=== PATIENT | female | born 1995 | race African-American/Black ===

== ENCOUNTER 2017-05-25 18:53 | Observation (INO) | payer SELFPAY ==
[2017-05-25 19:41] LABS: BILIRUBIN,URINE SMALL (NEG); CLARITY,URINE CLOUDY; GLUCOSE,URINE NEGATIVE (NEG); NITRITE,URINE NEGATIVE (NEG); PH,URINE 6.5; PROTEIN,URINE NEGATIVE (NEG-TRACE)
[2017-05-25 19:48] LABS: BARBITURATES NEG (NEG); BENZODIAZEPINES NEG (NEG); CANNABINOIDS POS (NEG); COCAINE NEG (NEG); METHADONE NEG (NEG); OPIATES NEG (NEG); PHENCYCLIDINE NEG (NEG)
[2017-05-25 19:49] LABS: AMPHETAMINE/METHAMPHETAMINE NEG (NEG); COLOR,URINE DK YELLOW; ETHANOL, URINE NEG (NEG)
[2017-05-25 19:55] LABS: BACTERIA,URINE MODERATE /HPF (0-FEW); RBC,URINE 0 /HPF (0-2); SQUAMOUS EPITHELIAL CELL,UR MANY /LPF
[2017-05-25] MEDS: MAG HYDROX/ALUMINUM HYD/SIMETH 30 ML ORAL.SUSP PO ×2 (20:03)
[2017-05-25] MEDS: ONDANSETRON PF 4 MG/2 ML VIAL. IV ×2 (20:04)
[2017-05-25] MEDS: ACETAMINOPHEN 325 MG TABLET. PO ×2 (20:04)
[2017-05-25] MEDS: IV RINGERS,LACTATED 1000ML 1,000 ML IV ×2 (20:05)
== END 2017-05-25 21:19 | disposition home or self-care (01) ==
LOC: 3 SO LND 18:53
DX: O26.893 Other specified pregnancy related conditions, third trimester (principal); O99.89 Other specified diseases and conditions complicating pregnancy, childbirth and the puerperium; R07.9 Chest pain, unspecified; M54.9 Dorsalgia, unspecified; Z3A.33 33 weeks gestation of pregnancy
CPT/HCPCS: 80307; 81001; 87086; 96361; 96374; G0378; G0379; J2405; J7120

== ENCOUNTER 2017-06-08 22:17 | Inpatient (IN) | payer OTHER ==
[2017-06-08] MEDS ORDERED: 0.9 % SODIUM CHLORIDE 10 ML DISP.SYRIN. IV (23:15)
[2017-06-08 23:55] LABS: BILIRUBIN,URINE SMALL (NEG); CLARITY,URINE TURBID; COLOR,URINE ORANGE; GLUCOSE,URINE NEGATIVE (NEG); NITRITE,URINE NEGATIVE (NEG); PROTEIN,URINE 30 mg/dL (NEG-TRACE)
[2017-06-09 00:02] LABS: BARBITURATES NEG (NEG); BENZODIAZEPINES NEG (NEG); CANNABINOIDS POS (NEG); COCAINE NEG (NEG); METHADONE NEG (NEG); OPIATES NEG (NEG); PHENCYCLIDINE NEG (NEG)
[2017-06-09 00:05] LABS: BACTERIA,URINE MANY /HPF (0-FEW); RBC,URINE 0 /HPF (0-2); SQUAMOUS EPITHELIAL CELL,UR MANY /LPF
[2017-06-09 00:09] LABS: AMPHETAMINE/METHAMPHETAMINE NEG (NEG); ETHANOL, URINE NEG (NEG)
[2017-06-09 00:11] LABS: ADD MAN DIFF? NO
[2017-06-09 00:14] LABS: BASO % 0 % (0-3); EOS % 0 % (0-3); HEMATOCRIT 34.8 % (36.0-47.0); HEMOGLOBIN 11.6 g/dL (12.0-15.5); LYMPH # 1.4 x10^3/uL (1.0-4.8); LYMPH % 11 % (24-48); MEAN CORPUSCULAR HEMOGLOBIN 27 pg (25-35); MEAN CORPUSCULAR HGB CONC 33 g/dL (31-37); MEAN CORPUSCULAR VOLUME 82 fL (79-100); MONO # 0.9 x10^3/uL (0.0-1.1); MONO % 7 % (0-9); NEUT # 10.2 x10^3uL (1.8-7.7); NEUT % 81 % (31-73); PLATELET COUNT 306 x10^3/uL (140-400); RED BLOOD COUNT 4.27 x10^6/uL (3.50-5.40); RED CELL DISTRIBUTION WIDTH 13.5 % (11.5-14.5); WHITE BLOOD COUNT 12.6 x10^3/uL (4.0-11.0)
[2017-06-09] MEDS: IV DEXTROSE 5%-LACT RINGERS 1,000 ML IV ×6 (00:24→20:24)
[2017-06-09 00:27] LABS: ALBUMIN 2.6 g/dL (3.4-5.0); ALBUMIN/GLOBULIN RATIO 0.6 (1.0-1.7); ALK PHOS 216 U/L (46-116); ALT (SGPT) 78 U/L (14-59); AMYLASE 88 U/L (25-115); ANION GAP 12 (6-14); AST (SGOT) 93 U/L (15-37); BLOOD UREA NITROGEN 7 mg/dL (7-20); BUN/CREATININE RATIO 9 (6-20); CALCIUM 8.6 mg/dL (8.5-10.1); CARBON DIOXIDE 23 mmol/L (21-32); CHLORIDE 103 mmol/L (98-107); CREATININE 0.8 mg/dL (0.6-1.0); GFR 107.6; GLUCOSE 93 mg/dL (70-99); LIPASE 75 U/L (73-393); POTASSIUM 3.8 mmol/L (3.5-5.1); SODIUM 138 mmol/L (136-145); TOTAL BILIRUBIN 0.8 mg/dL (0.2-1.0); TOTAL PROTEIN 7.3 g/dL (6.4-8.2)
[2017-06-09] MEDS: KETOROLAC 30 MG/ML INJ. IV ×2 (00:46→10:29)
[2017-06-09] MEDS: ONDANSETRON PF 4 MG/2 ML VIAL. IV (04:00)
[2017-06-09] MEDS: oxyCODONE/APAP 5/325 1 TAB TABLET PO ×2 (13:39→19:41)
[2017-06-09] MEDS ORDERED: oxyCODONE/APAP 5/325 1 TAB TABLET PO ×2 (13:45)
[2017-06-10] MEDS: IV DEXTROSE 5%-LACT RINGERS 1,000 ML IV ×3 (00:22→08:19)
[2017-06-10] MEDS: oxyCODONE/APAP 5/325 1 TAB TABLET PO ×3 (04:20→17:51)
[2017-06-10 05:49] LABS: ADD MAN DIFF? NO
[2017-06-10 05:54] LABS: BASO % 0 % (0-3); EOS # 0.1 x10^3/uL (0.0-0.7); EOS % 1 % (0-3); HEMOGLOBIN 9.5 g/dL (12.0-15.5); LYMPH % 27 % (24-48); MEAN CORPUSCULAR HEMOGLOBIN 28 pg (25-35); MEAN CORPUSCULAR HGB CONC 34 g/dL (31-37); MEAN CORPUSCULAR VOLUME 82 fL (79-100); MONO # 0.6 x10^3/uL (0.0-1.1); MONO % 8 % (0-9); NEUT # 4.7 x10^3uL (1.8-7.7); NEUT % 64 % (31-73); PLATELET COUNT 252 x10^3/uL (140-400); RED BLOOD COUNT 3.42 x10^6/uL (3.50-5.40); RED CELL DISTRIBUTION WIDTH 13.6 % (11.5-14.5); WHITE BLOOD COUNT 7.4 x10^3/uL (4.0-11.0)
[2017-06-10 06:12] LABS: ALBUMIN/GLOBULIN RATIO 0.5 (1.0-1.7); ALK PHOS 169 U/L (46-116); ALT (SGPT) 55 U/L (14-59); ANION GAP 6 (6-14); AST (SGOT) 50 U/L (15-37); BLOOD UREA NITROGEN 4 mg/dL (7-20); BUN/CREATININE RATIO 6 (6-20); CALCIUM 7.8 mg/dL (8.5-10.1); CARBON DIOXIDE 25 mmol/L (21-32); CHLORIDE 107 mmol/L (98-107); CREATININE 0.7 mg/dL (0.6-1.0); GFR 125.5; GLUCOSE 104 mg/dL (70-99); POTASSIUM 3.6 mmol/L (3.5-5.1); SODIUM 138 mmol/L (136-145); TOTAL BILIRUBIN 0.3 mg/dL (0.2-1.0); TOTAL PROTEIN 5.7 g/dL (6.4-8.2)
== END 2017-06-10 18:23 | disposition home or self-care (01) | DRG 781 ==
LOC: 3 SO LND 22:17 → 3 NORTH 06-09 00:15
DX: O99.613 Diseases of the digestive system complicating pregnancy, third trimester (principal); K80.12 Calculus of gallbladder with acute and chronic cholecystitis without obstruction; D50.0 Iron deficiency anemia secondary to blood loss (chronic); Z3A.35 35 weeks gestation of pregnancy; O99.013 Anemia complicating pregnancy, third trimester
CPT/HCPCS: 36415; 76705; 80053; 80307; 81001; 82150; 83690; 84443; 85025; 87086; G0378; G0379; J1885; J2405

== ENCOUNTER 2017-06-11 23:51 | Inpatient (IN) | payer OTHER ==
[2017-06-12 00:30] LABS: BILIRUBIN,URINE SMALL (NEG); CLARITY,URINE CLOUDY; COLOR,URINE AMBER; GLUCOSE,URINE NEGATIVE (NEG); NITRITE,URINE NEGATIVE (NEG); PROTEIN,URINE NEGATIVE (NEG-TRACE); UROBILINOGEN,URINE >=8.0 mg/dL (0.2 mg/dL)
[2017-06-12 00:35] LABS: BARBITURATES NEG (NEG); BENZODIAZEPINES NEG (NEG); CANNABINOIDS POS (NEG); COCAINE NEG (NEG); METHADONE NEG (NEG); OPIATES NEG (NEG); PHENCYCLIDINE NEG (NEG)
[2017-06-12 00:37] LABS: AMPHETAMINE/METHAMPHETAMINE NEG (NEG); ETHANOL, URINE NEG (NEG)
[2017-06-12 00:40] LABS: BACTERIA,URINE MANY /HPF (0-FEW); RBC,URINE 0 /HPF (0-2); SQUAMOUS EPITHELIAL CELL,UR MANY /LPF
[2017-06-12] MEDS ORDERED: fentaNYL PF VIAL 100 MCG/2 ML VIAL (00:51)
[2017-06-12] MEDS: IV RINGERS,LACTATED 1000ML 1,000 ML IV ×5 (00:59→23:18)
[2017-06-12] MEDS: fentaNYL PF VIAL 100 MCG/2 ML VIAL IV (00:59)
[2017-06-12] MEDS ORDERED: oxyCODONE/APAP 5/325 1 TAB TABLET PO (01:00)
[2017-06-12 01:13] LABS: ADD MAN DIFF? NO
[2017-06-12 01:15] LABS: BASO % 0 % (0-3); EOS % 0 % (0-3); HEMATOCRIT 30.7 % (36.0-47.0); HEMOGLOBIN 10.4 g/dL (12.0-15.5); LYMPH # 1.3 x10^3/uL (1.0-4.8); LYMPH % 13 % (24-48); MEAN CORPUSCULAR HEMOGLOBIN 28 pg (25-35); MEAN CORPUSCULAR HGB CONC 34 g/dL (31-37); MEAN CORPUSCULAR VOLUME 82 fL (79-100); MONO # 0.8 x10^3/uL (0.0-1.1); MONO % 8 % (0-9); NEUT # 7.9 x10^3uL (1.8-7.7); NEUT % 79 % (31-73); PLATELET COUNT 281 x10^3/uL (140-400); RED BLOOD COUNT 3.75 x10^6/uL (3.50-5.40); RED CELL DISTRIBUTION WIDTH 13.2 % (11.5-14.5); WHITE BLOOD COUNT 10.1 x10^3/uL (4.0-11.0)
[2017-06-12 01:28] LABS: ALBUMIN 2.3 g/dL (3.4-5.0); ALBUMIN/GLOBULIN RATIO 0.6 (1.0-1.7); ALK PHOS 213 U/L (46-116); ALT (SGPT) 60 U/L (14-59); AMYLASE 102 U/L (25-115); ANION GAP 7 (6-14); AST (SGOT) 81 U/L (15-37); BLOOD UREA NITROGEN 5 mg/dL (7-20); BUN/CREATININE RATIO 10 (6-20); CALCIUM 8.3 mg/dL (8.5-10.1); CARBON DIOXIDE 25 mmol/L (21-32); CHLORIDE 105 mmol/L (98-107); CREATININE 0.5 mg/dL (0.6-1.0); GLUCOSE 95 mg/dL (70-99); LIPASE 78 U/L (73-393); POTASSIUM 4.1 mmol/L (3.5-5.1); SODIUM 137 mmol/L (136-145); TOTAL BILIRUBIN 0.8 mg/dL (0.2-1.0); TOTAL PROTEIN 6.2 g/dL (6.4-8.2)
[2017-06-12] MEDS: oxyCODONE/APAP 5/325 1 TAB TABLET PO ×2 (15:51→22:00)
[2017-06-13] MEDS: IV RINGERS,LACTATED 1000ML 1,000 ML IV (07:08)
[2017-06-13] MEDS: oxyCODONE/APAP 5/325 1 TAB TABLET PO (12:07)
[2017-06-13] MEDS ORDERED: FAMOTIDINE 20 MG TABLET. PO (21:00)
== END 2017-06-13 15:20 | disposition home or self-care (01) | DRG 781 ==
LOC: 3 SO LND 23:51
DX: O99.613 Diseases of the digestive system complicating pregnancy, third trimester (principal); K80.20 Calculus of gallbladder without cholecystitis without obstruction; Z3A.36 36 weeks gestation of pregnancy
CPT/HCPCS: 36415; 59025; 80053; 80307; 81001; 82150; 83690; 85025; 87086; G0379; J3010; J7120

== ENCOUNTER 2017-06-22 12:00 | Inpatient (IN) | payer OTHER ==
[2017-06-22] MEDS ORDERED: fentaNYL PF VIAL 100 MCG/2 ML VIAL IV (13:15)
[2017-06-22] MEDS ORDERED: OXYTOCIN 30 UNIT/500 ML PREMIX 500 ML IV (13:15)
[2017-06-22] MEDS ORDERED: LIDOCAINE 1% PF 30 ML VIAL. INJ ×2 (13:15→22:45)
[2017-06-22] MEDS: IV RINGERS,LACTATED 1000ML 1,000 ML IV ×2 (13:56→21:26)
[2017-06-22 14:06] LABS: ADD MAN DIFF? NO
[2017-06-22 14:09] LABS: BASO % 0 % (0-3); EOS % 0 % (0-3); HEMOGLOBIN 11.4 g/dL (12.0-15.5); LYMPH % 18 % (24-48); MEAN CORPUSCULAR HEMOGLOBIN 27 pg (25-35); MEAN CORPUSCULAR HGB CONC 33 g/dL (31-37); MEAN CORPUSCULAR VOLUME 83 fL (79-100); MONO # 0.7 x10^3/uL (0.0-1.1); MONO % 6 % (0-9); NEUT # 8.3 x10^3uL (1.8-7.7); NEUT % 76 % (31-73); PLATELET COUNT 261 x10^3/uL (140-400); RED BLOOD COUNT 4.21 x10^6/uL (3.50-5.40); WHITE BLOOD COUNT 10.9 x10^3/uL (4.0-11.0)
[2017-06-22] MEDS ORDERED: AMPICILLIN SODIUM 2 GM in IV NORMAL SALINE 100ML 100 ML IV (14:15)
[2017-06-22] MEDS ORDERED: AMPICILLIN SODIUM 1 GM in IV NORMAL SALINE 50ML 50 ML IV (14:15)
[2017-06-22] MEDS: DINOPROSTONE 10 MG SUPP.VAG VG (17:26)
[2017-06-22] MEDS ORDERED: BUTORPHANOL 2 MG/ML VIAL. IV (22:45)
[2017-06-22] MEDS ORDERED: TERBUTALINE 1 MG/ML VIAL. SQ (22:45)
[2017-06-22] MEDS: ONDANSETRON PF 4 MG/2 ML VIAL. IV (22:52)
[2017-06-22] MEDS: BUTORPHANOL 2 MG/ML VIAL. IV (22:52)
[2017-06-23] MEDS: BUTORPHANOL 2 MG/ML VIAL. IV ×3 (01:15→16:51)
[2017-06-23] MEDS: IV RINGERS,LACTATED 1000ML 1,000 ML IV ×3 (05:07→21:14)
[2017-06-23] MEDS: DINOPROSTONE 10 MG SUPP.VAG VG (09:56)
[2017-06-23] MEDS: AMPICILLIN SODIUM IV Push 2 GM VIAL. IVP (16:52)
[2017-06-23] MEDS ORDERED: BUPIVACAINE MPF 0.25% 30 ML VIAL. (18:12)
[2017-06-23] MEDS ORDERED: L&D EPIDURAL SYRINGE 50 ML EP (18:12)
[2017-06-23] MEDS: OXYTOCIN 30 UNIT/500 ML PREMIX 500 ML IV (18:51)
[2017-06-23] MEDS ORDERED: IV RINGERS,LACTATED 1000ML 1,000 ML IV (18:55)
[2017-06-23] MEDS ORDERED: BUPIVACAINE MPF 0.25% 10 ML VIAL. EPI (19:00)
[2017-06-23] MEDS ORDERED: fentaNYL PF VIAL 100 MCG/2 ML VIAL EPI (19:00)
[2017-06-23] MEDS ORDERED: ROPIVacaine 0.2% IN 0.9%NACL PF 40 MG/20 ML DISP.SYRIN. EPI (19:00)
[2017-06-23] MEDS ORDERED: diphenhydrAMINE 50 MG/ML VIAL IV (19:00)
[2017-06-23] MEDS ORDERED: IV RINGERS,LACTATED 500ML 500 ML IV (19:00)
[2017-06-23] MEDS ORDERED: NALOXONE 0.4 MG/ML VIAL. IV (19:00)
[2017-06-23] MEDS ORDERED: ONDANSETRON PF 4 MG/2 ML VIAL. IV (19:00)
[2017-06-23] MEDS ORDERED: PROCHLORPERAZINE 10 MG/2 ML VIAL. IV (19:00)
[2017-06-23] MEDS ORDERED: NALBUPHINE 10 MG/ML AMPUL. IV (19:00)
[2017-06-23] MEDS ORDERED: PHENYLEPHRINE in 0.9% NACL PF 1 MG/10 ML SYRINGE. IV (19:00)
[2017-06-23] MEDS ORDERED: ePHEDrine PF IN SALINE 50 MG/5 ML DISP.SYRIN IV (19:00)
[2017-06-23] MEDS: L&D EPIDURAL SYRINGE 50 ML EP ×2 (19:10→22:08)
[2017-06-23] MEDS: AMPICILLIN SODIUM IV Push 1 GM VIAL. IVP (20:45)
[2017-06-24] MEDS: IV RINGERS,LACTATED 1000ML 1,000 ML IV (00:50)
[2017-06-24] MEDS: AMPICILLIN SODIUM IV Push 1 GM VIAL. IVP (01:13)
[2017-06-24] MEDS: L&D EPIDURAL SYRINGE 50 ML EP ×2 (02:35→05:45)
[2017-06-24] MEDS ORDERED: L&D EPIDURAL CASSETTE 100 ML EP (05:30)
[2017-06-24] MEDS ORDERED: METHYLERGONOVINE MALEATE 0.2 MG/ML VIAL. IM (07:30)
[2017-06-24] MEDS ORDERED: miSOPROStol 200MCG TAB 200 MCG TABLET PR (07:30)
[2017-06-24 07:35] LABS: RPR Non Reactive (Non Reactive)
[2017-06-24] MEDS ORDERED: ZOLPIDEM 5 MG TABLET. PO (09:45)
[2017-06-24] MEDS ORDERED: SIMETHICONE 80 MG TAB.CHEW PO (09:45)
[2017-06-24] MEDS ORDERED: MAG HYDROX/ALUMINUM HYD/SIMETH 30 ML ORAL.SUSP PO (09:45)
[2017-06-24] MEDS ORDERED: PHENYLEPH/MINERAL OIL/PETROLAT RECTAL OINTMENT 28GM TUBE. RC (09:45)
[2017-06-24] MEDS ORDERED: IBUPROFEN 800 MG TABLET. PO (09:45)
[2017-06-24] MEDS ORDERED: HYDROCORTISONE 1% TOPICAL OINTMENT 30GM TUBE. TP (09:45)
[2017-06-24] MEDS ORDERED: ACETAMINOPHEN 325 MG TABLET. PO (09:45)
[2017-06-24] MEDS ORDERED: MMR per PROTOCOL. MC (09:45)
[2017-06-24] MEDS ORDERED: BENZOCAINE 20% TOPICAL AEROSOL SPRAY 57GM CAN. TP (09:45)
[2017-06-24] MEDS ORDERED: OXYTOCIN 30 UNIT/500 ML PREMIX 500 ML IV (09:45)
[2017-06-24] MEDS ORDERED: 0.9 % SODIUM CHLORIDE 10 ML DISP.SYRIN. IV (09:45)
[2017-06-24] MEDS ORDERED: MAGNESIUM HYDROXIDE 2,400 MG/30 ML ORAL.SUSP. PO (09:45)
[2017-06-24] MEDS ORDERED: diphenhydrAMINE HCL 25 MG CAPSULE PO (09:45)
[2017-06-24] MEDS: IBUPROFEN 800 MG TABLET. PO ×2 (09:56→17:51)
[2017-06-24] MEDS ORDERED: L&D EPIDURAL SYRINGE 50 ML EP (10:00)
[2017-06-24] MEDS: HYDROcodone/APAP 5/325MG 1 TAB TABLET PO ×2 (14:42→22:58)
[2017-06-24] MEDS ORDERED: IV RINGERS,LACTATED 1000ML 1,000 ML IV (20:39)
[2017-06-24] MEDS: DOCUSATE SODIUM 100 MG CAPSULE. PO (22:58)
[2017-06-25] MEDS: HYDROcodone/APAP 5/325MG 1 TAB TABLET PO ×3 (03:29→21:32)
[2017-06-25 04:23] LABS: BASO % 0 % (0-3); EOS # 0.1 x10^3/uL (0.0-0.7); EOS % 1 % (0-3); HEMATOCRIT 29.1 % (36.0-47.0); HEMOGLOBIN 9.6 g/dL (12.0-15.5); LYMPH # 2.5 x10^3/uL (1.0-4.8); LYMPH % 11 % (24-48); MEAN CORPUSCULAR HEMOGLOBIN 28 pg (25-35); MEAN CORPUSCULAR HGB CONC 33 g/dL (31-37); MEAN CORPUSCULAR VOLUME 84 fL (79-100); MONO # 1.5 x10^3/uL (0.0-1.1); MONO % 7 % (0-9); NEUT # 18.1 x10^3uL (1.8-7.7); NEUT % 81 % (31-73); PLATELET COUNT 251 x10^3/uL (140-400); RED BLOOD COUNT 3.47 x10^6/uL (3.50-5.40); RED CELL DISTRIBUTION WIDTH 15.5 % (11.5-14.5); WHITE BLOOD COUNT 22.2 x10^3/uL (4.0-11.0)
[2017-06-25 04:30] LABS: ADD MAN DIFF? YES
[2017-06-25 04:45] LABS: ALBUMIN/GLOBULIN RATIO 0.5 (1.0-1.7); ALK PHOS 149 U/L (46-116); ALT (SGPT) 14 U/L (14-59); ANION GAP 7 (6-14); AST (SGOT) 19 U/L (15-37); BLOOD UREA NITROGEN 8 mg/dL (7-20); BUN/CREATININE RATIO 9 (6-20); CALCIUM 8.4 mg/dL (8.5-10.1); CARBON DIOXIDE 25 mmol/L (21-32); CHLORIDE 108 mmol/L (98-107); CREATININE 0.9 mg/dL (0.6-1.0); GFR 93.9; GLUCOSE 91 mg/dL (70-99); POTASSIUM 3.9 mmol/L (3.5-5.1); SODIUM 140 mmol/L (136-145); TOTAL BILIRUBIN 0.4 mg/dL (0.2-1.0); TOTAL PROTEIN 5.8 g/dL (6.4-8.2)
[2017-06-25 07:17] LABS: % LYMPHS 13 % (24-48); % MONOS 6 % (0-10); % SEGS 81 % (35-66); ANISOCYTOSIS SLIGHT; PLT ESTIMATE ADEQUATE (ADEQUATE)
[2017-06-25] MEDS: DOCUSATE SODIUM 100 MG CAPSULE. PO ×2 (07:51→21:31)
[2017-06-25] MEDS: IBUPROFEN 800 MG TABLET. PO ×2 (07:52→17:10)
[2017-06-25] MEDS: FERROUS SULFATE 325 MG TABLET. PO ×2 (07:52→17:10)
[2017-06-26] MEDS: HYDROcodone/APAP 5/325MG 1 TAB TABLET PO (02:01)
[2017-06-26] MEDS: IBUPROFEN 800 MG TABLET. PO ×2 (02:02→15:04)
[2017-06-26 04:42] LABS: ADD MAN DIFF? NO
[2017-06-26 04:49] LABS: BASO % 0 % (0-3); EOS # 0.1 x10^3/uL (0.0-0.7); EOS % 1 % (0-3); HEMATOCRIT 28.5 % (36.0-47.0); HEMOGLOBIN 9.4 g/dL (12.0-15.5); LYMPH # 3.2 x10^3/uL (1.0-4.8); LYMPH % 29 % (24-48); MEAN CORPUSCULAR HEMOGLOBIN 28 pg (25-35); MEAN CORPUSCULAR HGB CONC 33 g/dL (31-37); MEAN CORPUSCULAR VOLUME 83 fL (79-100); MONO # 0.8 x10^3/uL (0.0-1.1); MONO % 7 % (0-9); NEUT # 7.1 x10^3uL (1.8-7.7); NEUT % 63 % (31-73); PLATELET COUNT 236 x10^3/uL (140-400); RED BLOOD COUNT 3.42 x10^6/uL (3.50-5.40); RED CELL DISTRIBUTION WIDTH 15.9 % (11.5-14.5); WHITE BLOOD COUNT 11.3 x10^3/uL (4.0-11.0)
[2017-06-26 05:25] LABS: ALBUMIN 1.8 g/dL (3.4-5.0); ALBUMIN/GLOBULIN RATIO 0.6 (1.0-1.7); ALK PHOS 115 U/L (46-116); ALT (SGPT) 13 U/L (14-59); ANION GAP 5 (6-14); AST (SGOT) 15 U/L (15-37); BLOOD UREA NITROGEN 7 mg/dL (7-20); BUN/CREATININE RATIO 9 (6-20); CALCIUM 8.1 mg/dL (8.5-10.1); CARBON DIOXIDE 26 mmol/L (21-32); CHLORIDE 109 mmol/L (98-107); CREATININE 0.8 mg/dL (0.6-1.0); GFR 107.6; GLUCOSE 79 mg/dL (70-99); POTASSIUM 4.1 mmol/L (3.5-5.1); SODIUM 140 mmol/L (136-145); TOTAL BILIRUBIN 0.1 mg/dL (0.2-1.0)
[2017-06-26] MEDS: FERROUS SULFATE 325 MG TABLET. PO (09:01)
[2017-06-26] MEDS: DOCUSATE SODIUM 100 MG CAPSULE. PO (09:01)
[2017-06-27] MEDS ORDERED: LIDOCAINE 1% PF 2 ML VIAL. ID (07:00)
[2017-06-27] MEDS ORDERED: IV RINGERS,LACTATED 1000ML 1,000 ML IV (07:00)
[2017-06-27] MEDS ORDERED: ONDANSETRON PF 4 MG/2 ML VIAL. IV (07:00)
[2017-06-27] MEDS ORDERED: MORPHINE SULFATE 2 MG/ML DISP.SYRIN. IV (07:00)
[2017-06-27] MEDS ORDERED: PROCHLORPERAZINE 10 MG/2 ML VIAL. IV (07:00)
[2017-06-27] MEDS ORDERED: fentaNYL PF VIAL 100 MCG/2 ML VIAL IV ×2 (07:00)
== END 2017-06-26 18:21 | disposition home or self-care (01) | DRG 775 ==
LOC: 3 SO LND 12:00 → 3 NORTH 06-24 10:30
PROC: 10E0XZZ Delivery of Products of Conception, External Approach (ICD-10-PCS; principal; 2017-06-22)
PROC: 3E0R3BZ Introduction of Anesthetic Agent into Spinal Canal, Percutaneous Approach (ICD-10-PCS; 2017-06-22)
PROC: 00HU33Z Insertion of Infusion Device into Spinal Canal, Percutaneous Approach (ICD-10-PCS; 2017-06-22)
PROC: 10907ZC Drainage of Amniotic Fluid, Therapeutic from Products of Conception, Via Natural or Artificial Opening (ICD-10-PCS; 2017-06-22)
DX: O99.62 Diseases of the digestive system complicating childbirth (principal); K80.20 Calculus of gallbladder without cholecystitis without obstruction; Z37.0 Single live birth; Z3A.37 37 weeks gestation of pregnancy
CPT/HCPCS: 36415; 80053; 85007; 85025; 85610; 86593; 86850; 86900; 86901; J0290; J2405; J2590; J7120

== ENCOUNTER 2017-06-27 06:43 | Observation (INO) | payer OTHER ==
[2017-06-27] MEDS: IV RINGERS,LACTATED 1000ML 1,000 ML IV ×2 (07:45→14:37)
[2017-06-27] MEDS ORDERED: NEOSTIGMINE 10 MG/10 ML VIAL. (08:12)
[2017-06-27] MEDS ORDERED: SUCCINYLCHOLINE 200 MG/10 ML VIAL. (08:12)
[2017-06-27] MEDS ORDERED: ROCURONIUM 50 MG/5 ML VIAL. ×2 (08:12→09:50)
[2017-06-27] MEDS ORDERED: fentaNYL PF VIAL 100 MCG/2 ML VIAL ×3 (08:12→11:24)
[2017-06-27] MEDS ORDERED: DEXAMETHASONE SOD PHOS 20 MG/5 ML VIAL. (08:13)
[2017-06-27] MEDS ORDERED: PROPOFOL 20 ML IV (08:13)
[2017-06-27] MEDS ORDERED: GLYCOPYRROLATE 1 MG/5 ML VIAL. (08:13)
[2017-06-27] MEDS ORDERED: MIDAZOLAM HCL/PF 2 MG/2 ML VIAL. (08:13)
[2017-06-27] MEDS ORDERED: SEVOFLURANE > 120 MINUTES. IH (08:13)
[2017-06-27] MEDS ORDERED: KETOROLAC 30 MG/ML INJ FOR OR. INJ (08:13)
[2017-06-27] MEDS ORDERED: ONDANSETRON PF 4 MG/2 ML VIAL. (08:14)
[2017-06-27] MEDS: IOHEXOL 300 MG/ML 100ML VIAL. (09:15)
[2017-06-27] MEDS: BUPIVAC MPF-EPI 0.5%-1:200000 30 ML VIAL. INJ (09:15)
[2017-06-27] MEDS ORDERED: ONDANSETRON PF 4 MG/2 ML VIAL. IV ×2 (11:15→11:45)
[2017-06-27] MEDS ORDERED: 0.9 % SODIUM CHLORIDE 10 ML DISP.SYRIN. IV (11:15)
[2017-06-27] MEDS ORDERED: BISACODYL 10 MG SUPP.RECT. PR (11:15)
[2017-06-27] MEDS ORDERED: ceFAZolin SODIUM 1 GM in IV DEXTROSE 5% 50 ML IV (11:30)
[2017-06-27] MEDS ORDERED: IV RINGERS,LACTATED 1000ML 1,000 ML IV (11:32)
[2017-06-27] MEDS: fentaNYL PF VIAL 100 MCG/2 ML VIAL IV ×3 (11:44→12:40)
[2017-06-27] MEDS ORDERED: fentaNYL PF VIAL 100 MCG/2 ML VIAL IV (11:45)
[2017-06-27] MEDS ORDERED: HYDROmorphone 2 MG/ML VIAL IV (11:45)
[2017-06-27] MEDS ORDERED: PROCHLORPERAZINE 10 MG/2 ML VIAL. IV (11:45)
[2017-06-27] MEDS ORDERED: LIDOCAINE 1% PF 2 ML VIAL. ID (11:45)
[2017-06-27] MEDS ORDERED: MORPHINE SULFATE 2 MG/ML DISP.SYRIN. IV (11:45)
[2017-06-27] MEDS: ceFAZolin SODIUM IV Push 1 GM VIAL. IVP ×2 (14:36→21:21)
[2017-06-27] MEDS: oxyCODONE/APAP 5/325 1 TAB TABLET PO ×3 (14:39→22:28)
[2017-06-27] MEDS: POTASSIUM CL 20MEQ-0.45% NACL 1,000 ML IV ×2 (16:59→22:31)
[2017-06-27] MEDS: FAMOTIDINE 20 MG/2 ML VIAL IVP (21:20)
[2017-06-28] MEDS: oxyCODONE/APAP 5/325 1 TAB TABLET PO ×2 (02:34→08:06)
[2017-06-28] MEDS: IV RINGERS,LACTATED 1000ML 1,000 ML IV (03:45)
[2017-06-28 05:31] LABS: ADD MAN DIFF? NO
[2017-06-28 05:42] LABS: BASO % 0 % (0-3); EOS # 0.1 x10^3/uL (0.0-0.7); EOS % 1 % (0-3); HEMATOCRIT 29.5 % (36.0-47.0); HEMOGLOBIN 9.7 g/dL (12.0-15.5); LYMPH % 16 % (24-48); MEAN CORPUSCULAR HEMOGLOBIN 28 pg (25-35); MEAN CORPUSCULAR HGB CONC 33 g/dL (31-37); MEAN CORPUSCULAR VOLUME 84 fL (79-100); MONO # 0.8 x10^3/uL (0.0-1.1); MONO % 7 % (0-9); NEUT # 9.5 x10^3uL (1.8-7.7); NEUT % 76 % (31-73); PLATELET COUNT 297 x10^3/uL (140-400); RED BLOOD COUNT 3.51 x10^6/uL (3.50-5.40); RED CELL DISTRIBUTION WIDTH 15.7 % (11.5-14.5); WHITE BLOOD COUNT 12.4 x10^3/uL (4.0-11.0)
[2017-06-28 05:59] LABS: ANION GAP 7 (6-14); BLOOD UREA NITROGEN 9 mg/dL (7-20); BUN/CREATININE RATIO 10 (6-20); CALCIUM 7.9 mg/dL (8.5-10.1); CARBON DIOXIDE 27 mmol/L (21-32); CHLORIDE 108 mmol/L (98-107); CREATININE 0.9 mg/dL (0.6-1.0); GFR 93.9; GLUCOSE 113 mg/dL (70-99); POTASSIUM 3.8 mmol/L (3.5-5.1); SODIUM 142 mmol/L (136-145)
[2017-06-28 06:00] LABS: ALBUMIN 1.9 g/dL (3.4-5.0); ALBUMIN/GLOBULIN RATIO 0.6 (1.0-1.7); ALK PHOS 152 U/L (46-116); ALT (SGPT) 21 U/L (14-59); AST (SGOT) 26 U/L (15-37); TOTAL BILIRUBIN 0.1 mg/dL (0.2-1.0); TOTAL PROTEIN 5.3 g/dL (6.4-8.2)
[2017-06-28] MEDS: ceFAZolin SODIUM IV Push 1 GM VIAL. IVP (06:22)
[2017-06-28] MEDS: FAMOTIDINE 20 MG/2 ML VIAL IVP (08:06)
== END 2017-06-28 11:15 | disposition home or self-care (01) ==
LOC: SURG 06:43 → 4 NORTH 11:28
DX: K80.10 Calculus of gallbladder with chronic cholecystitis without obstruction (principal)
CPT/HCPCS: 36415; 74300; 80053; 85025; 88304; 96374; 96375; 96376; G0378; G0379; J0330; J0690; J1100; J1885; J2250; J2405; J2704; J2710; J3010; J3490; J7030; J7120; Q9967; S0028